=== PATIENT | male | born 1985 | race Caucasian/White ===

== ENCOUNTER 2016-09-02 19:59 | Inpatient (IN) | payer OTHER ==
[~2016-09-02] VITALS: Ht 180.3 cm; Wt 93.6 kg
[2016-09-02 20:45] LABS: BASOPHILS % (AUTO) 0.3 % (0.0-2.0); EOSINOPHILS % (AUTO) 1.1 % (1.0-6.0); HEMOGLOBIN 15.8 g/dL (13.5-17.5); LYMPHOCYTES # (AUTO) 2.3 K/uL (1.0-4.8); LYMPHOCYTES % (AUTO) 18.1 % (22.0-44.0); MEAN CORPUSCULAR HEMOGLOBIN 29.6 pg (26.0-34.0); MEAN CORPUSCULAR VOLUME 90 fL (80-100); MONOCYTES # (AUTO) 0.9 K/uL (0.1-1.0); MONOCYTES % (AUTO) 7.4 % (2.0-9.0); NEUTROPHILS # (AUTO) 9.1 K/uL (1.8-7.7); NEUTROPHILS % (AUTO) 73.1 % (40.0-70.0); PLATELET COUNT (AUTO) 256 K/uL (150-450); RED BLOOD CELL COUNT(AUTO) 5.35 MIL/uL (4.50-5.90); RED CELL DISTRIBUTION WIDTH 12.7 % (11.5-14.5); WHITE BLOOD COUNT (AUTO) 12.4 K/uL (4.5-11.0)
[2016-09-02] MEDS ORDERED: SODIUM CHLORIDE 0.9% 1,000 ML IV ONE (20:45)
[2016-09-02] MEDS ORDERED: CEFTAROLINE 600 MG/D5W 250 ML IV ONE (20:45)
[2016-09-02] MEDS ORDERED: KETOROLAC TROMETHAMINE 30 MG/ML VIAL IVP ONE (20:45)
[2016-09-02 20:56] LABS: ANION GAP 9 mmol/L (8-16); CALCIUM, TOTAL 8.6 mg/dL (8.8-10.5); CARBON DIOXIDE 29 mmol/L (22-29); CHLORIDE 101 mmol/L (98-107); CREATININE 0.84 mg/dL (0.60-1.30); GLOMERULAR FILTR. RATE CALC > 60 mL/min (>60); POTASSIUM 3.7 mmol/L (3.5-5.1); SODIUM SERUM 139 mmol/L (136-145); UREA NITROGEN, BLOOD 18 mg/dL (7-18)
[2016-09-02 21:02] LABS: ALANINE AMINOTRANSFERASE 35 U/L (12-78); ALBUMIN 3.6 g/dL (3.4-5.0); ASPARTATE AMINOTRANSFERASE 14 U/L (15-37); BILIRUBIN,TOTAL 0.3 mg/dL (0.1-1.0)
[2016-09-02 21:04] LABS: LACTIC ACID 1.6 mmol/L (0.4-2.0)
[2016-09-02] MEDS ORDERED: ONDANSETRON HCL 4 MG/2 ML VIAL IVP PRN (22:00)
[2016-09-02] MEDS ORDERED: ACETAMINOPHEN 325 MG TABLET PO PRN (22:00)
[2016-09-02 23:03] VITALS: BP 114/66
[2016-09-02] MEDS: TraMADol HCL 50 MG TABLET PO PRN (23:37)
[2016-09-03] MEDS ORDERED: IPRATROPIUM BROMIDE 0.5 MG/2.5 ML NEB SOLUTION NEB PRN (01:00)
[2016-09-03] MEDS ORDERED: PEG 3350/NA SULF,BICARB,CL/KCL 4000 ML SOLUTION PO ONE (01:00)
[2016-09-03] MEDS ORDERED: ALBUTEROL SULFATE 2.5 MG/0.5 ML NEB SOLUTION NEB PRN (01:00)
[2016-09-03] MEDS ORDERED: MAGNESIUM HYDROXIDE SUSPENSION 30 ML UDCUP PO PRN (01:00)
[2016-09-03] MEDS ORDERED: VANCOMYCIN HCL 1 GM/D5% WATER 200 ML IV SCH (01:00)
[2016-09-03] MEDS ORDERED: ONDANSETRON HCL 4 MG/2 ML VIAL IVP PRN (01:00)
[2016-09-03] MEDS ORDERED: BISACODYL 10 MG RECTAL RECTAL SUPPOSITORY PR PRN (01:00)
[2016-09-03] MEDS ORDERED: ACETAMINOPHEN 325 MG TABLET PO PRN (01:00)
[2016-09-03] MEDS ORDERED: MORPHINE SULFATE 2 MG/ML SYRINGE IVP PRN (01:00)
[2016-09-03] MEDS ORDERED: ZOLPIDEM TARTRATE 5 MG TABLET PO PRN (01:00)
[2016-09-03] MEDS ORDERED: SODIUM CHLORIDE 0.9% 250 ML IV ONE (01:12)
[2016-09-03] MEDS ORDERED: VANCOMYCIN HCL 1 GM/D5% WATER 200 ML IV ONE (01:30)
[2016-09-03] MEDS: LEVOFLOXACIN 750 MG/D5% WATER 150 ML IV SCH (02:47)
[2016-09-03] MEDS: TraMADol HCL 50 MG TABLET PO PRN ×3 (03:33→13:37)
[2016-09-03 04:52] VITALS: BP 122/65
[2016-09-03] MEDS ORDERED: VANCOMYCIN HCL 750 MG in DEXTROSE 5%-WATER 150 ML IV ONE (05:00)
[2016-09-03 06:41] LABS: ANION GAP 6 mmol/L (8-16); CARBON DIOXIDE 30 mmol/L (22-29); CHLORIDE 103 mmol/L (98-107); GLOMERULAR FILTR. RATE CALC > 60 mL/min (>60); POTASSIUM 3.4 mmol/L (3.5-5.1); SODIUM SERUM 139 mmol/L (136-145); UREA NITROGEN, BLOOD 11 mg/dL (7-18)
[2016-09-03 08:25] VITALS: BP 110/72
[2016-09-03] MEDS: HEPARIN SODIUM,PORCINE 5,000 UNITS/ML VIAL SQ SCH ×3 (08:50→23:35)
[2016-09-03] MEDS: DOCUSATE SODIUM 100 MG CAPSULE PO SCH ×2 (08:50→22:13)
[2016-09-03] MEDS ORDERED: BISACODYL 10 MG RECTAL RECTAL SUPPOSITORY PR SCH (09:00)
[2016-09-03] MEDS: PANTOPRAZOLE SODIUM 40 MG/VIAL IVP SCH (09:56)
[2016-09-03 14:40] LABS: HEMATOCRIT 40.7 % (41-53); HEMOGLOBIN 13.5 g/dL (13.5-17.5); MEAN CORPUSCULAR HGB CONC 33.3 G/dL (31.0-37.0); MEAN CORPUSCULAR VOLUME 90 fL (80-100); PLATELET COUNT (AUTO) 219 K/uL (150-450); RED BLOOD CELL COUNT(AUTO) 4.52 MIL/uL (4.50-5.90); WHITE BLOOD COUNT (AUTO) 8.9 K/uL (4.5-11.0)
[2016-09-03 14:59] LABS: ANION GAP 7 mmol/L (8-16); CALCIUM, TOTAL 8.1 mg/dL (8.8-10.5); CARBON DIOXIDE 28 mmol/L (22-29); CHLORIDE 103 mmol/L (98-107); CREATININE 0.77 mg/dL (0.60-1.30); GLOMERULAR FILTR. RATE CALC > 60 mL/min (>60); POTASSIUM 3.2 mmol/L (3.5-5.1); SODIUM SERUM 138 mmol/L (136-145); UREA NITROGEN, BLOOD 12 mg/dL (7-18)
[2016-09-03 15:04] LABS: ALANINE AMINOTRANSFERASE 25 U/L (12-78); ALBUMIN 2.9 g/dL (3.4-5.0); ASPARTATE AMINOTRANSFERASE 9 U/L (15-37); BILIRUBIN,TOTAL 0.5 mg/dL (0.1-1.0); TOTAL PROTEIN, SERUM 6.7 g/dL (6.4-8.2)
[2016-09-03] MEDS ORDERED: POTASSIUM CHLORIDE 20 MEQ ER TABLET PO PRN (15:15)
[2016-09-03] MEDS ORDERED: POTASSIUM CHL 10 MEQ/WATER 50 ML IV PRN (15:15)
[2016-09-03 15:48] VITALS: BP 119/70
[2016-09-03 15:54] LABS: ERYTHROCYTE SEDIMENTATION RATE 35 MM/HR (0-15)
[2016-09-03 16:05] LABS: EOSINOPHILS % (MANUAL) 1 % (1-6); LYMPHOCYTES % (MANUAL) 17 % (22-44); REACTIVE LYMPHOCYTES 7 % (0-0); TOTAL CELLS COUNTED 100
[2016-09-03] MEDS: VANCOMYCIN HCL 1.5 GM in DEXTROSE 5%-WATER 250 ML IV SCH ×2 (16:19→23:35)
[2016-09-03 19:39] VITALS: BP 117/68
[2016-09-03 23:14] VITALS: BP 97/52
[2016-09-04] MEDS: LEVOFLOXACIN 750 MG/D5% WATER 150 ML IV SCH (02:20)
[2016-09-04] MEDS: TraMADol HCL 50 MG TABLET PO PRN ×4 (04:01→22:21)
[2016-09-04 05:07] VITALS: BP 97/59
[2016-09-04 06:27] LABS: BASOPHILS % (AUTO) 0.2 % (0.0-2.0); EOSINOPHILS % (AUTO) 1.5 % (1.0-6.0); HEMATOCRIT 41.6 % (41-53); HEMOGLOBIN 13.7 g/dL (13.5-17.5); LYMPHOCYTES # (AUTO) 2.3 K/uL (1.0-4.8); LYMPHOCYTES % (AUTO) 22.5 % (22.0-44.0); MEAN CORPUSCULAR HEMOGLOBIN 29.9 pg (26.0-34.0); MEAN CORPUSCULAR HGB CONC 32.9 G/dL (31.0-37.0); MEAN CORPUSCULAR VOLUME 91 fL (80-100); MONOCYTES # (AUTO) 1.3 K/uL (0.1-1.0); MONOCYTES % (AUTO) 12.4 % (2.0-9.0); NEUTROPHILS # (AUTO) 6.5 K/uL (1.8-7.7); NEUTROPHILS % (AUTO) 63.4 % (40.0-70.0); PLATELET COUNT (AUTO) 219 K/uL (150-450); RED BLOOD CELL COUNT(AUTO) 4.57 MIL/uL (4.50-5.90); RED CELL DISTRIBUTION WIDTH 12.8 % (11.5-14.5); WHITE BLOOD COUNT (AUTO) 10.2 K/uL (4.5-11.0)
[2016-09-04 07:15] LABS: ANION GAP 7 mmol/L (8-16); CALCIUM, TOTAL 8.2 mg/dL (8.8-10.5); CARBON DIOXIDE 27 mmol/L (22-29); CHLORIDE 103 mmol/L (98-107); CREATININE 0.83 mg/dL (0.60-1.30); GLOMERULAR FILTR. RATE CALC > 60 mL/min (>60); POTASSIUM 3.8 mmol/L (3.5-5.1); SODIUM SERUM 137 mmol/L (136-145); UREA NITROGEN, BLOOD 14 mg/dL (7-18)
[2016-09-04] MEDS ORDERED: MEDRONATE TC99M/UD<30 MCL ISOTOPE 1 EA INJ INJ ONE (07:40)
[2016-09-04 07:49] VITALS: BP 109/71
[2016-09-04] MEDS: DOCUSATE SODIUM 100 MG CAPSULE PO SCH ×2 (08:33→22:21)
[2016-09-04] MEDS: HEPARIN SODIUM,PORCINE 5,000 UNITS/ML VIAL SQ SCH ×2 (08:33→17:16)
[2016-09-04] MEDS: PANTOPRAZOLE SODIUM 40 MG/VIAL IVP SCH (09:13)
[2016-09-04] MEDS: VANCOMYCIN HCL 1.5 GM in DEXTROSE 5%-WATER 250 ML IV SCH ×3 (09:13→17:14)
[2016-09-04 11:22] VITALS: BP 113/73
[2016-09-04 16:12] VITALS: BP 108/68
[2016-09-04] MEDS ORDERED: SODIUM CHLORIDE 0.9% 500 ML IV ONE (17:17)
[2016-09-04 19:33] VITALS: BP 118/68
[2016-09-04 23:19] VITALS: BP 106/59
[2016-09-05] MEDS: VANCOMYCIN HCL 1.5 GM in DEXTROSE 5%-WATER 250 ML IV SCH ×5 (00:04→23:37)
[2016-09-05] MEDS: HEPARIN SODIUM,PORCINE 5,000 UNITS/ML VIAL SQ SCH ×4 (00:04→23:38)
[2016-09-05] MEDS: TraMADol HCL 50 MG TABLET PO PRN ×4 (02:24→20:49)
[2016-09-05] MEDS: LEVOFLOXACIN 750 MG/D5% WATER 150 ML IV SCH (02:26)
[2016-09-05] MEDS: HYDROCODONE/ACETAMINOPHEN 5-325 MG TABLET PO PRN (03:45)
[2016-09-05 04:01] VITALS: BP 105/62
[2016-09-05 06:07] LABS: BASOPHILS # (AUTO) 0.03 K/uL (0.00-0.20); BASOPHILS % (AUTO) 0.3 % (0.0-2.0); EOSINOPHILS # (AUTO) 0.26 K/uL (0.00-0.70); EOSINOPHILS % (AUTO) 3.11 % (1.0-6.0); HEMATOCRIT 42.3 % (41-53); HEMOGLOBIN 14.1 g/dL (13.5-17.5); LYMPHOCYTES # (AUTO) 2.6 K/uL (1.0-4.8); LYMPHOCYTES % (AUTO) 30.6 % (22.0-44.0); MEAN CORPUSCULAR HEMOGLOBIN 30.5 pg (26.0-34.0); MEAN CORPUSCULAR HGB CONC 33.4 G/dL (31.0-37.0); MEAN CORPUSCULAR VOLUME 91 fL (80-100); MONOCYTES # (AUTO) 0.9 K/uL (0.1-1.0); MONOCYTES % (AUTO) 10.8 % (2.0-9.0); NEUTROPHILS # (AUTO) 4.6 K/uL (1.8-7.7); NEUTROPHILS % (AUTO) 55.3 % (40.0-70.0); PLATELET COUNT (AUTO) 248 K/uL (150-450); RED BLOOD CELL COUNT(AUTO) 4.63 MIL/uL (4.50-5.90); WHITE BLOOD COUNT (AUTO) 8.4 K/uL (4.5-11.0)
[2016-09-05 07:23] LABS: ANION GAP 8 mmol/L (8-16); CALCIUM, TOTAL 8.4 mg/dL (8.8-10.5); CARBON DIOXIDE 29 mmol/L (22-29); CHLORIDE 102 mmol/L (98-107); CREATININE 0.86 mg/dL (0.60-1.30); GLOMERULAR FILTR. RATE CALC > 60 mL/min (>60); POTASSIUM 3.6 mmol/L (3.5-5.1); SODIUM SERUM 139 mmol/L (136-145); UREA NITROGEN, BLOOD 12 mg/dL (7-18)
[2016-09-05 07:26] VITALS: BP 118/66
[2016-09-05] MEDS: DOCUSATE SODIUM 100 MG CAPSULE PO SCH ×2 (07:54→20:43)
[2016-09-05] MEDS: PANTOPRAZOLE SODIUM 40 MG/VIAL IVP SCH (10:35)
[2016-09-05 11:40] VITALS: BP 115/65
[2016-09-05] MEDS ORDERED: SODIUM CHLORIDE 0.9% 500 ML IV ONE (12:03)
[2016-09-05 15:45] VITALS: BP 117/66
[2016-09-05 19:05] VITALS: BP 115/71
[2016-09-05 23:43] VITALS: BP 116/69
[2016-09-06] MEDS: TraMADol HCL 50 MG TABLET PO PRN ×3 (01:42→19:17)
[2016-09-06] MEDS: LEVOFLOXACIN 750 MG/D5% WATER 150 ML IV SCH (03:51)
[2016-09-06] MEDS: HYDROCODONE/ACETAMINOPHEN 5-325 MG TABLET PO PRN ×2 (03:59→19:57)
[2016-09-06 04:26] VITALS: BP 100/56
[2016-09-06] MEDS: VANCOMYCIN HCL 1.5 GM in DEXTROSE 5%-WATER 250 ML IV SCH (06:34)
[2016-09-06 06:39] LABS: BASOPHILS # (AUTO) 0.03 K/uL (0.00-0.20); BASOPHILS % (AUTO) 0.4 % (0.0-2.0); EOSINOPHILS # (AUTO) 0.32 K/uL (0.00-0.70); EOSINOPHILS % (AUTO) 4.26 % (1.0-6.0); HEMATOCRIT 41.1 % (41-53); LYMPHOCYTES # (AUTO) 2.4 K/uL (1.0-4.8); MEAN CORPUSCULAR HEMOGLOBIN 30.7 pg (26.0-34.0); MEAN CORPUSCULAR VOLUME 90 fL (80-100); MONOCYTES # (AUTO) 0.7 K/uL (0.1-1.0); MONOCYTES % (AUTO) 8.8 % (2.0-9.0); NEUTROPHILS # (AUTO) 4.2 K/uL (1.8-7.7); NEUTROPHILS % (AUTO) 54.6 % (40.0-70.0); PLATELET COUNT (AUTO) 265 K/uL (150-450); RED BLOOD CELL COUNT(AUTO) 4.56 MIL/uL (4.50-5.90); RED CELL DISTRIBUTION WIDTH 13.1 % (11.5-14.5); WHITE BLOOD COUNT (AUTO) 7.6 K/uL (4.5-11.0)
[2016-09-06 07:02] LABS: ANION GAP 8 mmol/L (8-16); CALCIUM, TOTAL 8.5 mg/dL (8.8-10.5); CARBON DIOXIDE 29 mmol/L (22-29); CHLORIDE 101 mmol/L (98-107); CREATININE 0.81 mg/dL (0.60-1.30); GLOMERULAR FILTR. RATE CALC > 60 mL/min (>60); POTASSIUM 3.6 mmol/L (3.5-5.1); SODIUM SERUM 138 mmol/L (136-145); UREA NITROGEN, BLOOD 12 mg/dL (7-18)
[2016-09-06 07:30] VITALS: BP 104/64
[2016-09-06] MEDS: HEPARIN SODIUM,PORCINE 5,000 UNITS/ML VIAL SQ SCH ×3 (08:18→23:55)
[2016-09-06] MEDS: PANTOPRAZOLE SODIUM 40 MG/VIAL IVP SCH (08:18)
[2016-09-06] MEDS: DOCUSATE SODIUM 100 MG CAPSULE PO SCH ×2 (08:18→19:57)
[2016-09-06 08:39] LABS: PROCALCITONIN (PCT) < 0.05 ng/mL (<0.50)
[2016-09-06] MEDS ORDERED: GADOBUTROL 1 MMOL/ML 10 ML VIAL IVP ONE (10:03)
[2016-09-06 12:00] VITALS: BP 110/66
[2016-09-06 16:07] VITALS: BP 102/61
[2016-09-06] MEDS ORDERED: SODIUM CHLORIDE 0.9% 500 ML IV ONE (16:51)
[2016-09-06] MEDS: VANCOMYCIN HCL 1 GM/D5% WATER 200 ML IV SCH ×2 (17:38→23:55)
[2016-09-06 19:58] VITALS: BP 111/64
[2016-09-07] VITALS (7 sets, daily range): BP systolic 95–116; BP diastolic 50–68
[2016-09-07] MEDS: HYDROCODONE/ACETAMINOPHEN 5-325 MG TABLET PO PRN ×2 (02:01→08:01)
[2016-09-07] MEDS: LEVOFLOXACIN 750 MG/D5% WATER 150 ML IV SCH (02:07)
[2016-09-07] MEDS: TraMADol HCL 50 MG TABLET PO PRN ×2 (05:09→17:20)
[2016-09-07] MEDS: VANCOMYCIN HCL 1 GM/D5% WATER 200 ML IV SCH ×4 (05:10→23:24)
[2016-09-07 06:15] LABS: BASOPHILS % (AUTO) 0.5 % (0.0-2.0); EOSINOPHILS % (AUTO) 3.7 % (1.0-6.0); HEMATOCRIT 49.2 % (41-53); HEMOGLOBIN 16.1 g/dL (13.5-17.5); LYMPHOCYTES # (AUTO) 3.3 K/uL (1.0-4.8); LYMPHOCYTES % (AUTO) 42.3 % (22.0-44.0); MEAN CORPUSCULAR HEMOGLOBIN 29.8 pg (26.0-34.0); MEAN CORPUSCULAR HGB CONC 32.7 G/dL (31.0-37.0); MEAN CORPUSCULAR VOLUME 91 fL (80-100); MONOCYTES # (AUTO) 0.6 K/uL (0.1-1.0); MONOCYTES % (AUTO) 7.1 % (2.0-9.0); NEUTROPHILS # (AUTO) 3.6 K/uL (1.8-7.7); NEUTROPHILS % (AUTO) 46.4 % (40.0-70.0); PLATELET COUNT (AUTO) 327 K/uL (150-450); RED CELL DISTRIBUTION WIDTH 12.7 % (11.5-14.5); WHITE BLOOD COUNT (AUTO) 7.7 K/uL (4.5-11.0)
[2016-09-07 06:45] LABS: ANION GAP 9 mmol/L (8-16); CALCIUM, TOTAL 9.3 mg/dL (8.8-10.5); CARBON DIOXIDE 30 mmol/L (22-29); CHLORIDE 100 mmol/L (98-107); CREATININE 0.87 mg/dL (0.60-1.30); GLOMERULAR FILTR. RATE CALC > 60 mL/min (>60); POTASSIUM 3.7 mmol/L (3.5-5.1); SODIUM SERUM 139 mmol/L (136-145); UREA NITROGEN, BLOOD 14 mg/dL (7-18)
[2016-09-07] MEDS: PANTOPRAZOLE SODIUM 40 MG/VIAL IVP SCH (08:00)
[2016-09-07] MEDS: HEPARIN SODIUM,PORCINE 5,000 UNITS/ML VIAL SQ SCH ×3 (08:00→23:24)
[2016-09-07] MEDS: DOCUSATE SODIUM 100 MG CAPSULE PO SCH ×2 (08:00→19:54)
[2016-09-08] MEDS: TraMADol HCL 50 MG TABLET PO PRN ×3 (01:48→20:12)
[2016-09-08] MEDS: LEVOFLOXACIN 750 MG/D5% WATER 150 ML IV SCH (03:36)
[2016-09-08 04:41] VITALS: BP 122/70
[2016-09-08] MEDS: VANCOMYCIN HCL 1 GM/D5% WATER 200 ML IV SCH ×4 (05:24→23:56)
[2016-09-08 07:30] VITALS: BP 111/72
[2016-09-08 07:32] LABS: BASOPHILS % (AUTO) 0.2 % (0.0-2.0); EOSINOPHILS % (AUTO) 3.7 % (1.0-6.0); HEMATOCRIT 43.9 % (41-53); HEMOGLOBIN 14.6 g/dL (13.5-17.5); LYMPHOCYTES # (AUTO) 2.4 K/uL (1.0-4.8); LYMPHOCYTES % (AUTO) 24.9 % (22.0-44.0); MEAN CORPUSCULAR HEMOGLOBIN 30.2 pg (26.0-34.0); MEAN CORPUSCULAR HGB CONC 33.3 G/dL (31.0-37.0); MEAN CORPUSCULAR VOLUME 91 fL (80-100); MONOCYTES # (AUTO) 0.8 K/uL (0.1-1.0); MONOCYTES % (AUTO) 8.5 % (2.0-9.0); NEUTROPHILS % (AUTO) 62.7 % (40.0-70.0); PLATELET COUNT (AUTO) 290 K/uL (150-450); RED BLOOD CELL COUNT(AUTO) 4.84 MIL/uL (4.50-5.90); WHITE BLOOD COUNT (AUTO) 9.6 K/uL (4.5-11.0)
[2016-09-08] MEDS: HEPARIN SODIUM,PORCINE 5,000 UNITS/ML VIAL SQ SCH ×3 (08:00→23:56)
[2016-09-08 08:07] LABS: ANION GAP 9 mmol/L (8-16); CALCIUM, TOTAL 8.5 mg/dL (8.8-10.5); CARBON DIOXIDE 27 mmol/L (22-29); CHLORIDE 102 mmol/L (98-107); CREATININE 0.84 mg/dL (0.60-1.30); GLOMERULAR FILTR. RATE CALC > 60 mL/min (>60); POTASSIUM 3.5 mmol/L (3.5-5.1); SODIUM SERUM 138 mmol/L (136-145); UREA NITROGEN, BLOOD 16 mg/dL (7-18)
[2016-09-08] MEDS: DOCUSATE SODIUM 100 MG CAPSULE PO SCH ×2 (09:06→20:12)
[2016-09-08] MEDS: PANTOPRAZOLE SODIUM 40 MG/VIAL IVP SCH (09:06)
[2016-09-08 11:39] VITALS: BP 123/74
[2016-09-08] MEDS ORDERED: SODIUM CHLORIDE 0.9% 1,000 ML IV ONE (12:08)
[2016-09-08 15:54] VITALS: BP 112/68
[2016-09-08] MEDS: HYDROCODONE/ACETAMINOPHEN 5-325 MG TABLET PO PRN ×2 (16:19→23:56)
[2016-09-08] MEDS ORDERED: 0.9% SODIUM CHLORIDE 10 ML SYRINGE IVP PRN (18:00)
[2016-09-08 19:19] VITALS: BP 119/75
[2016-09-08 23:44] VITALS: BP 115/72
[2016-09-09] MEDS: LEVOFLOXACIN 750 MG/D5% WATER 150 ML IV SCH (02:23)
[2016-09-09] MEDS: TraMADol HCL 50 MG TABLET PO PRN (04:13)
[2016-09-09 05:04] VITALS: BP 107/69
[2016-09-09] MEDS: VANCOMYCIN HCL 1 GM/D5% WATER 200 ML IV SCH (06:47)
[2016-09-09 07:35] LABS: BASOPHILS # (AUTO) 0.03 K/uL (0.00-0.20); BASOPHILS % (AUTO) 0.4 % (0.0-2.0); EOSINOPHILS # (AUTO) 0.39 K/uL (0.00-0.70); EOSINOPHILS % (AUTO) 5.71 % (1.0-6.0); HEMATOCRIT 43.1 % (41-53); HEMOGLOBIN 14.5 g/dL (13.5-17.5); LYMPHOCYTES # (AUTO) 2.2 K/uL (1.0-4.8); LYMPHOCYTES % (AUTO) 32.8 % (22.0-44.0); MEAN CORPUSCULAR HEMOGLOBIN 30.5 pg (26.0-34.0); MEAN CORPUSCULAR HGB CONC 33.7 G/dL (31.0-37.0); MEAN CORPUSCULAR VOLUME 91 fL (80-100); MONOCYTES # (AUTO) 0.7 K/uL (0.1-1.0); MONOCYTES % (AUTO) 9.8 % (2.0-9.0); NEUTROPHILS # (AUTO) 3.5 K/uL (1.8-7.7); NEUTROPHILS % (AUTO) 51.4 % (40.0-70.0); PLATELET COUNT (AUTO) 277 K/uL (150-450); RED BLOOD CELL COUNT(AUTO) 4.75 MIL/uL (4.50-5.90); RED CELL DISTRIBUTION WIDTH 12.7 % (11.5-14.5); WHITE BLOOD COUNT (AUTO) 6.8 K/uL (4.5-11.0)
[2016-09-09] MEDS: PANTOPRAZOLE SODIUM 40 MG/VIAL IVP SCH (07:45)
[2016-09-09] MEDS: DOCUSATE SODIUM 100 MG CAPSULE PO SCH ×2 (07:45→20:26)
[2016-09-09] MEDS: HEPARIN SODIUM,PORCINE 5,000 UNITS/ML VIAL SQ SCH ×4 (07:47→23:50)
[2016-09-09 07:51] LABS: ANION GAP 6 mmol/L (8-16); CALCIUM, TOTAL 8.7 mg/dL (8.8-10.5); CARBON DIOXIDE 29 mmol/L (22-29); CHLORIDE 102 mmol/L (98-107); CREATININE 0.82 mg/dL (0.60-1.30); GLOMERULAR FILTR. RATE CALC > 60 mL/min (>60); POTASSIUM 3.9 mmol/L (3.5-5.1); SODIUM SERUM 137 mmol/L (136-145); UREA NITROGEN, BLOOD 16 mg/dL (7-18)
[2016-09-09 08:19] VITALS: BP 131/52
[2016-09-09 11:28] VITALS: BP 115/67
[2016-09-09] MEDS: HYDROCODONE/ACETAMINOPHEN 5-325 MG TABLET PO PRN ×2 (11:42→16:31)
[2016-09-09 15:57] VITALS: BP 114/59
[2016-09-09] MEDS: VANCOMYCIN HCL 1.25 GM in DEXTROSE 5%-WATER 250 ML IV SCH ×2 (16:30→23:44)
[2016-09-09 20:07] VITALS: BP 121/77
[2016-09-10] VITALS (7 sets, daily range): BP systolic 100–118; BP diastolic 50–73
[2016-09-10] MEDS: LEVOFLOXACIN 750 MG/D5% WATER 150 ML IV SCH (03:01)
[2016-09-10] MEDS: HEPARIN SODIUM,PORCINE 5,000 UNITS/ML VIAL SQ SCH ×4 (08:00→23:57)
[2016-09-10] MEDS: DOCUSATE SODIUM 100 MG CAPSULE PO SCH ×2 (08:20→20:35)
[2016-09-10] MEDS: VANCOMYCIN HCL 1.25 GM in DEXTROSE 5%-WATER 250 ML IV SCH ×3 (08:20→23:53)
[2016-09-10] MEDS: PANTOPRAZOLE SODIUM 40 MG/VIAL IVP SCH (08:21)
[2016-09-10] MEDS ORDERED: DSS100 PO (19:12)
[2016-09-10] MEDS ORDERED: PANT40TA25 PO (19:12)
[2016-09-10] MEDS ORDERED: ACET-2247 PO (19:12)
[2016-09-10] MEDS ORDERED: LEVO750P3 IV (19:12)
[2016-09-10] MEDS ORDERED: MOM30 PO (19:12)
[2016-09-10] MEDS ORDERED: HYDR-309 PO (19:12)
[2016-09-10] MEDS ORDERED: ZOLP5 PO (19:12)
[2016-09-10] MEDS ORDERED: VANC1.257 IVPB (19:12)
[2016-09-10] MEDS ORDERED: TRAM50TA4 PO (19:12)
[2016-09-10] MEDS ORDERED: HEPA500017 SQ (19:12)
[2016-09-11] MEDS: LEVOFLOXACIN 750 MG/D5% WATER 150 ML IV SCH (02:44)
[2016-09-11 04:23] VITALS: BP 97/56
[2016-09-11 07:31] VITALS: BP 124/83
[2016-09-11] MEDS: HEPARIN SODIUM,PORCINE 5,000 UNITS/ML VIAL SQ SCH ×3 (08:00→15:54)
[2016-09-11] MEDS: PANTOPRAZOLE SODIUM 40 MG/VIAL IVP SCH (08:38)
[2016-09-11] MEDS: DOCUSATE SODIUM 100 MG CAPSULE PO SCH (08:38)
[2016-09-11] MEDS: VANCOMYCIN HCL 1.25 GM in DEXTROSE 5%-WATER 250 ML IV SCH ×2 (08:39→17:54)
[2016-09-11 10:51] LABS: ANION GAP 8 mmol/L (8-16); CARBON DIOXIDE 28 mmol/L (22-29); CHLORIDE 102 mmol/L (98-107); CREATININE 0.79 mg/dL (0.60-1.30); GLOMERULAR FILTR. RATE CALC > 60 mL/min (>60); POTASSIUM 3.9 mmol/L (3.5-5.1); SODIUM SERUM 138 mmol/L (136-145); UREA NITROGEN, BLOOD 12 mg/dL (7-18)
[2016-09-11 10:56] VITALS: BP 120/75
[2016-09-11 12:34] LABS: PROTHROMBIN TIME 10.7 SEC (9.4-11.6)
[2016-09-11 14:53] VITALS: BP 117/69
[2016-09-11] MEDS ORDERED: HEPARIN SODIUM 1000 UNITS/NS 500 ML ONE (16:25)
[2016-09-11 20:12] VITALS: BP 116/72
== END 2016-09-11 22:00 | DRG 720 ==
LOC: EMS 20:00 → 6N 21:55 → EMS 22:10
PROVIDERS: ADMIT Hospitalist; ATTEND Hospitalist
PROC: 02HV33Z Insertion of Infusion Device into Superior Vena Cava, Percutaneous Approach (ICD-10-PCS; principal; 2016-09-03)
PROC: B548ZZA Ultrasonography of Superior Vena Cava, Guidance (ICD-10-PCS; 2016-09-03)
DX: A41.9 Sepsis, unspecified organism (principal); L03.115 Cellulitis of right lower limb; F15.10 Other stimulant abuse, uncomplicated; F12.90 Cannabis use, unspecified, uncomplicated; E87.6 Hypokalemia; M86.9 Osteomyelitis, unspecified; Z96.698 Presence of other orthopedic joint implants; G89.29 Other chronic pain; R00.0 Tachycardia, unspecified; Z53.29 Procedure and treatment not carried out because of patient's decision for other reasons; S91.301A Unspecified open wound, right foot, initial encounter; S93.334A Other dislocation of right foot, initial encounter; X58.XXXA Exposure to other specified factors, initial encounter; Y93.89 Activity, other specified; Z79.01 Long term (current) use of anticoagulants; Y92.89 Other specified places as the place of occurrence of the external cause; Z79.899 Other long term (current) drug therapy; Y99.8 Other external cause status
CPT/HCPCS: 36569; 73720; 78315; 83605; 84145; 85007; 85651; 86140; 87040; 87070; 87205; 96365; 96375; 99285; A9503; A9585; C9113; J0712; J1644; J1885; J1956; J3370; J7030; J7040; J7050; J7060

== ENCOUNTER → 2016-09-27 | Outpatient (CLI) | payer OTHER ==
[~2016-09-27] MED LIST: ACET-2247 PO; DSS100 PO; HEPA500017 SQ; HYDR-309 PO; LEVO750P3 IV; MEDRONATE TC99M/UD<30 MCL ISOTOPE 1 EA INJ INJ ONE; MOM30 PO; PANT40TA25 PO; TRAM50TA4 PO; VANC1.257 IVPB; ZOLP5 PO
== END | disposition home or self-care (01) ==
LOC: RADMN 13:36
PROVIDERS: ATTEND Internal Medicine Geriatric Medicine
DX: L03.115 Cellulitis of right lower limb (principal)
CPT/HCPCS: 78315; A9503

== ENCOUNTER 2018-12-11 11:18 | Emergency (ER) | payer OTHER ==
[~2018-12-11] VITALS: Ht 180.3 cm; Wt 86.4 kg
[~2018-12-11 11:18] MED LIST changes: -HEPA500017 SQ; +HEPA500018 SQ; -LEVO750P3 IV; +LEVO750P7 IV; -MEDRONATE TC99M/UD<30 MCL ISOTOPE 1 EA INJ INJ ONE
[2018-12-11] MEDS ORDERED: BACITRACIN 0.9 GM PACKET OINTMENT TP ONE (12:30)
[2018-12-11] MEDS ORDERED: PERTUSS(ACELL),DIPH,TET VAC/PF 0.5 ML VIAL IM ONE (12:30)
[2018-12-11 14:18] VITALS: BP 122/78
== END 2018-12-11 14:54 | disposition home or self-care (01) ==
LOC: EMS 11:19
DX: S62.665A Nondisplaced fracture of distal phalanx of left ring finger, initial encounter for closed fracture (principal); S60.512A Abrasion of left hand, initial encounter; S60.511A Abrasion of right hand, initial encounter; S00.81XA Abrasion of other part of head, initial encounter; S60.811A Abrasion of right wrist, initial encounter; F12.90 Cannabis use, unspecified, uncomplicated; F17.210 Nicotine dependence, cigarettes, uncomplicated; Z98.890 Other specified postprocedural states; V19.9XXA Pedal cyclist (driver) (passenger) injured in unspecified traffic accident, initial encounter; Y93.89 Activity, other specified; Y92.488 Other paved roadways as the place of occurrence of the external cause; Y99.8 Other external cause status
CPT/HCPCS: 70450; 90471; 90715

== ENCOUNTER 2018-12-12 17:35 | Emergency (ER) | payer OTHER ==
[~2018-12-12] VITALS: Ht 180.3 cm; Wt 86.4 kg
[2018-12-12] MEDS ORDERED: LIDOCAINE 5% TRANSDERMAL PATCH TD ONE (18:30)
[2018-12-12] MEDS ORDERED: CYCLOBENZAPRINE HCL 10 MG TABLET PO ONE (18:30)
[2018-12-12] MEDS ORDERED: KETOROLAC TROMETHAMINE 30 MG/ML VIAL IM ONE (18:30)
[2018-12-12 19:19] VITALS: BP 122/80
== END 2018-12-12 19:21 | disposition home or self-care (01) ==
LOC: EMS 17:37
DX: S40.011D Contusion of right shoulder, subsequent encounter (principal); S80.811D Abrasion, right lower leg, subsequent encounter; M79.10 Myalgia, unspecified site; M54.9 Dorsalgia, unspecified; R07.81 Pleurodynia; F17.210 Nicotine dependence, cigarettes, uncomplicated; V23.4XXD Motorcycle driver injured in collision with car, pick-up truck or van in traffic accident, subsequent encounter
CPT/HCPCS: 96372; 99283; 99406; J1885

== ENCOUNTER 2018-12-22 22:02 | Emergency (ER) | payer OTHER ==
[~2018-12-22] VITALS: Ht 180.3 cm; Wt 84.1 kg
[2018-12-22 22:19] VITALS: BP 134/86
== END 2018-12-22 23:08 | disposition home or self-care (01) ==
LOC: EMS 22:04
DX: Z02.89 Encounter for other administrative examinations (principal); F15.10 Other stimulant abuse, uncomplicated; F12.90 Cannabis use, unspecified, uncomplicated; F19.90 Other psychoactive substance use, unspecified, uncomplicated; Z87.891 Personal history of nicotine dependence

== ENCOUNTER 2021-09-18 20:44 | Emergency (ER) | payer OTHER ==
[~2021-09-18] VITALS: Ht 177.8 cm; Wt 90.9 kg
[2021-09-18] MEDS ORDERED: TRAM50TA4 PO (20:55)
[2021-09-18 21:11] LABS: BASOPHILS % (AUTO) 0.7 % (0.0-2.0); HEMATOCRIT 41.5 % (41-53); HEMOGLOBIN 14.3 g/dL (13.5-17.5); LYMPHOCYTES # (AUTO) 3.2 K/uL (1.0-4.8); LYMPHOCYTES % (AUTO) 39.3 % (22.0-44.0); MEAN CORPUSCULAR HEMOGLOBIN 30.6 pg (26.0-34.0); MEAN CORPUSCULAR HGB CONC 34.4 G/dL (31.0-37.0); MEAN CORPUSCULAR VOLUME 89 fL (80-100); MONOCYTES # (AUTO) 0.5 K/uL (0.1-1.0); MONOCYTES % (AUTO) 6.3 % (2.0-9.0); NEUTROPHILS # (AUTO) 4.1 K/uL (1.8-7.7); NEUTROPHILS % (AUTO) 50.7 % (40.0-70.0); PLATELET COUNT (AUTO) 220 K/uL (150-450); RED BLOOD CELL COUNT(AUTO) 4.66 MIL/uL (4.50-5.90); RED CELL DISTRIBUTION WIDTH 12.5 % (11.5-14.5)
[2021-09-18 21:19] LABS: ANION GAP 7 mmol/L (8-16); CALCIUM, TOTAL 7.9 mg/dL (8.8-10.5); CARBON DIOXIDE 25 mmol/L (22-29); CHLORIDE 102 mmol/L (98-107); CREATININE 0.74 mg/dL (0.60-1.30); GLOMERULAR FILTR. RATE CALC > 60 mL/min (>60); GLUCOSE,RANDOM 124 mg/dL (70-110); POTASSIUM 3.3 mmol/L (3.5-5.1); SODIUM SERUM 134 mmol/L (136-145); UREA NITROGEN, BLOOD 12 mg/dL (7-18)
[2021-09-18 21:25] LABS: ALANINE AMINOTRANSFERASE 39 U/L (12-78); ALBUMIN 3.4 g/dL (3.4-5.0); ALKALINE PHOSPHATASE 60 U/L (46-116); ASPARTATE AMINOTRANSFERASE 12 U/L (15-37); BILIRUBIN,TOTAL 0.1 mg/dL (0.1-1.0); LIPASE 131 U/L (73-393); TOTAL PROTEIN, SERUM 6.9 g/dL (6.4-8.2)
[2021-09-18 23:18] LABS: APPEARANCE,URINE CLEAR (CLEAR); BILIRUBIN,URINE NEGATIVE (NEGATIVE); GLUCOSE, URINE (UA) NEGATIVE (NEGATIVE); KETONES,URINE NEGATIVE (NEGATIVE); LEUKOCYTE ESTERASE ,URINE NEGATIVE (NEGATIVE); NITRATE,URINE NEGATIVE (NEGATIVE); OCCULT BLOOD,URINE NEGATIVE (NEGATIVE); PROTEIN,URINE NEGATIVE (NEGATIVE); SPECIFIC GRAVITIY, URINE 1.019 (1.003-1.030); UROBILINOGEN,URINE <=1.0 mg/dL (<=1.0)
[2021-09-19 04:32] VITALS: BP 131/69
== END 2021-09-19 04:32 | disposition home or self-care (01) ==
LOC: EMS 21:04
DX: R10.33 Periumbilical pain (principal); F12.90 Cannabis use, unspecified, uncomplicated; F15.90 Other stimulant use, unspecified, uncomplicated; Z79.899 Other long term (current) drug therapy
CPT/HCPCS: 74176; 80053; 81003; 83690; 85025; 99284

== ENCOUNTER 2021-10-16 00:41 | Emergency (ER) | payer OTHER ==
[~2021-10-16] VITALS: Ht 180.3 cm; Wt 90.9 kg
[~2021-10-16 00:41] MED LIST changes: -ACET-2247 PO; -DSS100 PO; -HEPA500018 SQ; -HYDR-309 PO; -LEVO750P7 IV; -MOM30 PO; -PANT40TA25 PO; -VANC1.257 IVPB; -ZOLP5 PO
[2021-10-16 00:48] VITALS: BP 120/61
[2021-10-16] MEDS ORDERED: CEPH-558 PO (00:58)
[2021-10-16] MEDS ORDERED: SULF-261 PO (00:58)
== END 2021-10-16 01:05 | disposition home or self-care (01) ==
LOC: EMS 00:42
DX: L02.416 Cutaneous abscess of left lower limb (principal); F12.90 Cannabis use, unspecified, uncomplicated; F15.90 Other stimulant use, unspecified, uncomplicated; Z98.890 Other specified postprocedural states
CPT/HCPCS: 99283; Z7502

== ENCOUNTER 2023-12-29 19:42 | Emergency (ER) | payer OTHER ==
[~2023-12-29] VITALS: Ht 177.8 cm; Wt 90.9 kg
[~2023-12-29 19:42] MED LIST changes: +CEPH-558 PO; +SULF-261 PO; -TRAM50TA4 PO; +TRAM50TA5 PO
[2023-12-30 00:09] LABS: BASOPHILS % (AUTO) 0.8 % (0.0-2.0); EOSINOPHILS % (AUTO) 3.6 % (1.0-6.0); HEMATOCRIT 37.8 % (41-53); HEMOGLOBIN 12.9 g/dL (13.5-17.5); LYMPHOCYTES # (AUTO) 2.5 K/uL (1.0-4.8); LYMPHOCYTES % (AUTO) 26.5 % (22.0-44.0); MEAN CORPUSCULAR HEMOGLOBIN 30.5 pg (26.0-34.0); MEAN CORPUSCULAR HGB CONC 34.2 G/dL (31.0-37.0); MEAN CORPUSCULAR VOLUME 89 fL (80-100); MONOCYTES # (AUTO) 1.1 K/uL (0.1-1.0); MONOCYTES % (AUTO) 11.7 % (2.0-9.0); NEUTROPHILS # (AUTO) 5.3 K/uL (1.8-7.7); NEUTROPHILS % (AUTO) 57.4 % (40.0-70.0); PLATELET COUNT (AUTO) 250 K/uL (150-450); RED BLOOD CELL COUNT(AUTO) 4.24 MIL/uL (4.50-5.90); RED CELL DISTRIBUTION WIDTH 13.4 % (11.5-14.5); WHITE BLOOD COUNT (AUTO) 9.3 K/uL (4.5-11.0)
[2023-12-30 00:16] LABS: ANION GAP 8 mmol/L (8-16); CARBON DIOXIDE 29 mmol/L (22-29); CHLORIDE 100 mmol/L (98-107); CREATININE 0.96 mg/dL (0.60-1.30); GLOMERULAR FILTR. RATE CALC > 60 mL/min (>60); GLUCOSE,RANDOM 102 mg/dL (70-110); POTASSIUM 3.2 mmol/L (3.5-5.1); SODIUM SERUM 137 mmol/L (136-145); UREA NITROGEN, BLOOD 17 mg/dL (7-18)
[2023-12-30 00:24] LABS: LACTIC ACID 1.4 mmol/L (0.4-2.0)
[2023-12-30] MEDS: TraMADol HCL 50 MG TABLET PO ONE (00:26)
[2023-12-30] MEDS: CLINDAMYCIN PHOS 150 MG/ML 4 ML VIAL IM ONE (00:27)
[2023-12-30 00:30] VITALS: BP 133/81; PULSE 86; RESP 24; TEMP 97.3; O2SAT 98
[2023-12-30] MEDS ORDERED: CLIN-142 PO (02:19)
[2023-12-30] MEDS ORDERED: TRAM50TA5 PO (02:20)
== END 2023-12-30 03:04 | disposition home or self-care (01) ==
LOC: EMS 19:42
DX: L03.112 Cellulitis of left axilla (principal); F17.210 Nicotine dependence, cigarettes, uncomplicated; F12.90 Cannabis use, unspecified, uncomplicated; F15.90 Other stimulant use, unspecified, uncomplicated; Z98.890 Other specified postprocedural states
CPT/HCPCS: 99283; 80048; 83605; 85025; 36415; 84145; 96372; J3490